=== PATIENT | male | born 1995 | race Hispanic/Latino ===

== ENCOUNTER 2018-09-27 00:30 | Emergency (ER) | payer SELFPAY ==
[2018-09-27] MEDS ORDERED: Adacel (T-DAP) 0.5 ML SYRINGE ONE (01:11)
[2018-09-27] MEDS ORDERED: Ketorolac Tromethamine 30 MG/ML VIAL ONE (01:47)
--- NOTE | 2018-09-27 08:56 | RAD ---
THREE VIEWS RIGHT HAND: HISTORY: Dog bite to the hand with pain. FINDINGS: Three views right hand show no evidence of acute fracture or dislocation. No degenerative changes ar e seen. No radiopaque foreign body is seen. IMPRESSION: Unremarkable exam. POS: [facility]
--- NOTE | 2018-09-27 09:33 | RAD ---
RIGHT FOREARM TWO VIEWS: HISTORY: Dog bite to the right arm with pain. COMPARISON: None. FINDINGS: Two views of the right forearm show no evidence of acute fracture or dislocation. Mild soft tissue s welling is seen. No degenerative changes are seen in the wrist or elbow. IMPRESSION: Unremarkable examination. POS: [facility]
== END 2018-09-27 01:54 | disposition home or self-care (01) ==
LOC: ERS 00:30
DX: S51.851A Open bite of right forearm, initial encounter (principal); Z23 Encounter for immunization; W54.0XXA Bitten by dog, initial encounter
CPT/HCPCS: 90471; 90715; 96374; J1885